=== PATIENT | female | born 1985 | race Caucasian/White ===

== ENCOUNTER 2016-11-15 11:51 | Inpatient (IN) | payer OTHER ==
[2016-11-15 13:08] VITALS: BMI 21.1
--- NOTE | 2016-11-15 14:30 | HP ---
COWS - Scale Resting Pulse: 0= [place] 80 or Below Sweatin=Flushed/Facial Moisture Restless Observation: 3= Extraneous Movement Pupil Size: 2= Moderately Dilated Bone or Joint Aches: 2= Severe Diffuse Aches Runny Nose/ Eye Tearin= Runny Nose/Eyes GI Upset > 30mins: 3= Vomiting/Diarrhea Tremor Observation: 2= Slight Tremor Visible Yawning Observation: 2= >3x During Session Anxiety or Irritability: 2=Irritable/Anxious Goose Flesh Skin: 0=Smooth Skin COWS Score: 20 Admission ROS S - HPI Chief Complaint: I NEED HELP TO STOP USING HEROIN Allergies/Adverse Reactions: Allergies Allergy/AdvReac Type Severity Reaction Status Date / Time No Known Allergies Allergy Verified 11/15/16 14:19 History of Present Illness: THIS 31 YEARS OLD FEMALE WITH HEROIN DEPENDENCE SEEKING DETOX,NEVER BEEN IN DETOX BEFORE ABSCESS OF RIGHT ELBOW TREATED WITH BACTRIM DS 1 TAB PO BID Exam Limitations: No Limitations - Ebola screening Have you traveled outside of the country in the last 21 days: No Have you had contact with anyone from an Ebola affected area: No Have you been sick,other than usual withdrawal symptoms: No - Review of Systems Constitutional: Chills, Diaphoresis, Loss of Appetite, Malaise, Night Sweats, Changes in sleep, Weakness EENT: reports: Tearing, Nose Congestion Respiratory: reports: No Symptoms reported Cardiac: reports: Palpitations GI: reports: Diarrhea, Nausea, Vomiting, Abdominal cramping : reports: No Symptoms Reported Musculoskeletal: reports: Back Pain, Joint Pain, Muscle Pain, Joint Stiffness Integumentary: reports: Dryness Neuro: reports: Headache, Tremors Endocrine: reports: No Symptoms Reported Hematology: reports: No Symptoms Reported Psychiatric: reports: Anxious, Depressed Patient History - Patient Medical History Hx Anemia: No Hx Asthma: No Hx Chronic Obstructive Pulmonary Disease (COPD): No Hx Cancer: No Hx Hypertension: No Hx Hypercholesterolemia: No Hx Pacemaker: No HX Cerebrovascular Accident: No Hx Seizures: No Hx Dementia: No Hx Diabetes: No Hx Gastrointestinal Disorders: No Hx Liver Disease: No Hx Genitourinary Disorders: No Hx Sexually Transmitted Disorders: No Hx Renal Disease (ESRD): No Hx Thyroid Disease: No Hx Human Immunodeficiency Virus (HIV): No (LAST 08/18) Hx Hepatitis C: No Hx Depression: Yes (ANXIETY) Hx Suicide Attempt: No Hx Bipolar Disorder: No Hx Schizophrenia: No Other Medical History: NO SUICIDAL,NO HOMICIDAL,ABSCESS OF RIEGHT ELBOW ON BACTRIM DS - Patient Surgical History Past Surgical History: No - PPD History Previous Implant?: Yes Documented Results: Negative w/o proof Implanted On Prior R Admission?: No PPD to be Administered?: Yes - Reproductive History Patient is a Female of Child Bearing Age (11 -55 yrs old): Yes Patient : No - Smoking Cessation Smoking history: Current every day smoker Aproximately how many cigarettes per day: 20 Hx Chewing Tobacco Use: No Initiated information on smoking cessation: Yes 'Breaking Loose' booklet given: 11/15/16 - Substance & Tx. History Hx Alcohol Use: No Hx Substance Use: Yes Substance Use Type: Heroin Hx Substance Use Treatment: No - Substances Abused Heroin Route: Injection Frequency: Daily Amount used: 20-30 bags Age of first use: 27 Date of Last Use: 11/15/16 Family Disease History - Family Disease History Family History: Denies Family Disease History: Other: Father (ALCOHOL) Admission Physical Exam [facility] - Vital Signs Vital Signs: Vital Signs - 24 hr 11/15/16 13:05 Temperature 98 F Pulse Rate 75 Respiratory 19 Rate Blood Pressure 121/65 - Physical General Appearance: Yes: Moderate Distress, Intoxicated, Tremorous, Irritable, Anxious HEENTM: Yes: Hearing grossly Normal, Normal ENT Inspection, Pharynx Normal Respiratory: Yes: Lungs Clear, Normal Breath Sounds, No Respiratory Distress Neck: Yes: Within Normal Limits, Supple, Trachea in good position Breast: Yes: Breast Exam Deferred Cardiology: Yes: Within Normal Limits, Regular Rhythm, S1, S2 Abdominal: Yes: Within Normal Limits, Normal Bowel Sounds, Non Tender, Flat, Soft Genitourinary: Yes: Within Normal Limits Back: Yes: Within Normal Limits, Muscle Spasm Musculoskeletal: Yes: full range of Motion, Back pain, Muscle Pain Extremities: Yes: Normal Inspection, Normal Range of Motion, Tremors Neurological: Yes: processing technician II-XII NML intact, Fully Oriented, Alert, Motor Strength 5/5 Integumentary: Yes: Dry, Track Das (ABSCESS OF RIGHT ELBOW) - Diagnostic (1) Opioid dependence with withdrawal Current Visit: Yes Status: Acute (2) Abscess Current Visit: Yes Status: Acute (3) Anxiety and depression Current Visit: Yes Status: Acute (4) Nicotine dependence Current Visit: Yes Status: Acute (5) Scoliosis Current Visit: Yes Status: Chronic Cleared for Admission [facility] - Detox or Rehab [facility] Level of Care: Medically Managed Detox Regimen/Protocol: Methadone [facility] Breath Alcohol Content Breath Alcohol Content: 0 Urine Pregancy Test - Result Urine Test Results: Negative- NO Line Present Urine Drug Screen - Results Drug Screen Negative: No Urine Drug Screen Results: OPI-Opiates
[2016-11-15] MEDS ORDERED: guaiFENesin/D-METHORPHAN HB 10 ML UNIT-DOSE CUPS PO PRN (14:43)
[2016-11-15] MEDS ORDERED: P-EPHED 60MG/TRIPROLIDI 2.5MG TABLET PO PRN (14:43)
[2016-11-15] MEDS ORDERED: MENTHOL/PHENOL 1 EACH UD MM PRN (14:43)
[2016-11-15] MEDS ORDERED: IBUPROFEN 400 MG TABLET (FP) PO PRN (14:43)
[2016-11-15] MEDS ORDERED: MAGNESIUM CITRATE 300 ML BOTTLE PO PRN (14:43)
[2016-11-15] MEDS ORDERED: MAG HYDROX/AL HYDROX/SIMETH 30 ML UNIT-DOSE CUP PO PRN (14:43)
[2016-11-15] MEDS ORDERED: LOPERAMIDE HCL 2 MG CAPSULE PO PRN (14:43)
[2016-11-15] MEDS ORDERED: ACETAMINOPHEN 325 MG TABLET (FP) PO PRN (14:43)
[2016-11-15] MEDS ORDERED: MAGNESIUM HYDROX 2400MG/30ML ORAL SUSPENSION 30 ML CUP PO PRN (14:43)
[2016-11-15] MEDS ORDERED: METHADONE HCL 10 MG TABLET (FOR DETOX USE ONLY) PO ONE ×2 (14:53→23:00)
[2016-11-15] MEDS: diazePAM 5 MG TABLET PO PRN ×2 (16:57→22:27)
[2016-11-15] MEDS: NICOTINE 21 MG/24 HOURS TOPICAL PATCH TD SCH (17:05)
[2016-11-15 17:52] LABS: URINE APPEARANCE CLEAR; URINE BILIRUBIN NEGATIVE (NEGATIVE); URINE BLOOD NEGATIVE (NEGATIVE); URINE COLOR DKYELLOW; URINE GLUCOSE (UA) NEGATIVE (NEGATIVE); URINE KETONE TRACE (NEGATIVE); URINE NITRITE NEGATIVE (NEGATIVE); URINE UROBILINOGEN 2.0 E.U/dl E.U./dl (0.2-1.0)
--- NOTE | 2016-11-15 17:55 | CONSULT ---
[facility] Psychiatric Consult - Data Date of interview: 11/15/16 Admission source: [facility] Identifying data: First admission to [facility] for this 31 y/o female from [place] ancestry seeking detox treatment on for heroin dependence.Patient is single without children,domiciled (lives with parents), currently employed and attending classes at [email or web address] (part-time student). Substance Abuse History: - Smoking Cessation. Smoking history: Current every day smoker. Aproximately how many cigarettes per day: 20. Hx Chewing Tobacco Use: No. Initiated information on smoking cessation: Yes. 'Breaking Loose' booklet given: 11/15/16. - Substance & Tx. History. Hx Alcohol Use: No. Hx Substance Use: Yes. Substance Use Type: Heroin. Hx Substance Use Treatment: No. Confirmed by patient. Medical History: Patient endorses good general health with the exception of an abcess (right elbow).Currently treated with antibiotics. Psychiatric History: Patient denies. Physical/Sexual Abuse/Trauma History: Patient denies. Additional Comment: Urine Drug Screen Results: OPI-Opiates.Noted. Mental Status Exam - Mental Status Exam Alert and Oriented to: Time, Place, Person Cognitive Function: Good Patient Appearance: Well Groomed Mood: Hopeful, Euthymic Affect: Appropriate, Normal Range Patient Behavior: Fatigued, Appropriate, Cooperative Speech Pattern: Clear, Appropriate Voice Loudness: Normal Thought Process: Goal Oriented Thought Disorder: Not Present Hallucinations: Denies Suicidal Ideation: Denies Homicidal Ideation: Denies Insight/Judgement: Poor Sleep: Fair Appetite: Good Muscle strength/Tone: Normal Gait/Station: Normal Psychiatric Findings - Problem List ([place] 1, 2,3) (1) Opioid dependence with withdrawal Current Visit: Yes Status: Acute (2) Substance induced mood disorder Current Visit: Yes Status: Acute (3) Nicotine dependence Current Visit: Yes Status: Acute (4) Abscess Current Visit: Yes Status: Acute (5) Scoliosis Current Visit: Yes Status: Chronic - Initial Treatment Plan Initial Treatment Plan: Psychoeducation.Detoxification.Observation.Patient is made aware of availability of diphenhydramine 50 mg po hs prn if insomnia.She is in agreement with this careplan.Observation.
[2016-11-15 17:57] LABS: URINE LEUK ESTERASE TRACE (NEGATIVE); URINE PROTEIN 1+ (NEGATIVE)
[2016-11-15 17:59] LABS: URINE MUCUS FEW; URINE RBC 12 /hpf (0-3); URINE WBC 2 /hpf (3-5)
[2016-11-15] MEDS: THIAMINE HCL 100 MG TABLET (FP) PO SCH (22:26)
[2016-11-15] MEDS: cloNIDine HCL 0.1 MG TABLET PO SCH (22:27)
[2016-11-15] MEDS: CYCLOBENZAPRINE HCL 10 MG TABLET (FP) PO PRN (22:27)
[2016-11-15] MEDS: SULFAMETHOXAZOLE/TRIMETHOPRIM 800MG/160MG D.S. TABLET PO SCH (22:27)
[2016-11-16] MEDS ORDERED: METHADONE HCL 10 MG TABLET (FOR DETOX USE ONLY) PO ONE (10:00)
[2016-11-16 10:16] LABS: ALBUMIN 3.3 g/dl (3.4-5.0); ALK PHOS 64 U/L (45-117); ANION GAP 8 (8-16); BILIRUBIN,TOTAL 0.1 mg/dL (0.2-1.0); CALCIUM 8.8 mg/dL (8.5-10.1); CO2 26 mmol/L (21-32); COCKROFT - GAULT 112.5655; CREATININE 0.7 mg/dL (0.55-1.02); GLUCOSE,RANDOM 105 mg/dL (74-106); SGOT/AST 13 U/L (15-37); SGPT/ALT 13 U/L (12-78); TOT PROT 6.5 g/dl (6.4-8.2)
[2016-11-16 10:28] LABS: MCH 28.7 pg (25.7-33.7); MCHC 32.9 g/dl (32.0-36.0); MEAN CELL VOLUME 87.1 fl (80-96); MEAN PLT VOLUME 7.9 fl (7.5-11.1); PLATELET COUNT 214 K/MM3 (134-434); RDW 13.4 % (11.6-15.6); WHITE BLOOD COUNT 5.2 K/mm3 (4.0-10.0)
[2016-11-16] MEDS: PRENATAL VITAMINS W/ FOLIC ACID TABLET (FP) PO SCH (10:45)
[2016-11-16] MEDS: cloNIDine HCL 0.1 MG TABLET PO SCH ×2 (10:45→22:14)
[2016-11-16] MEDS: SULFAMETHOXAZOLE/TRIMETHOPRIM 800MG/160MG D.S. TABLET PO SCH ×2 (10:45→22:14)
[2016-11-16] MEDS: NICOTINE 21 MG/24 HOURS TOPICAL PATCH TD SCH (10:46)
--- NOTE | 2016-11-16 10:52 | PN ---
S COWS - Scale Resting Pulse: 0= [place] 80 or Below Sweatin=Flushed/Facial Moisture Restless Observation: 1= Difficult to Sit Still Pupil Size: 0= Normal to Room Light Bone or Joint Aches: 2= Severe Diffuse Aches Runny Nose/ Eye Tearin= Runny Nose/Eyes GI Upset > 30mins: 2= Nausea/Diarrhea Tremor Observation of Outstretched Hands: 2= Slight Tremor Visible Yawning Observation: 2= >3x During Session Anxiety or Irritability: 2=Irritable/Anxious Goose Flesh Skin: 3=Piloerection COWS Score: 18 S Progress Note (SOAP) Subjective: body aches sweats anxiety nasal congestion irritable interrupted sleep Objective: 11/16/16 10:50 Vital Signs Temperature 97.5 F L 11/16/16 09:39 Pulse Rate 71 11/16/16 09:39 Respiratory Rate 16 11/16/16 09:39 Blood Pressure 98/53 11/16/16 09:39 O2 Sat by Pulse Oximetry (%) Laboratory Tests 11/15/16 11/16/16 15:30 07:00 Sodium 142 Potassium 4.4 Chloride 108 H Carbon Dioxide 26 Anion Gap 8 BUN 12 Creatinine 0.7 Creat Clearance w eGFR > 60 Random Glucose 105 Calcium 8.8 Total Bilirubin 0.1 L AST 13 L ALT 13 Alkaline Phosphatase 64 Total Protein 6.5 Albumin 3.3 L Urine Color Dkyellow Urine Appearance Clear Urine pH 5.0 Ur Specific [place] >= 1.030 H Urine Protein 1+ H Urine Glucose (UA) Negative Urine Ketones Trace H Urine Blood Negative Urine Nitrite Negative Urine Bilirubin Negative Urine Urobilinogen 2.0 e.u/dl H Ur Leukocyte Esterase Trace H Urine RBC 12 Urine WBC 2 Ur Epithelial Cells Rare Urine Mucus Few awake/alert ambulating no acute distress Assessment: 11/16/16 10:50 withdrawal sx Plan: continue detox increase fluids
--- NOTE | 2016-11-16 11:37 | EKG ---
Test Reason : Blood Pressure : / mmHG Vent. Rate : 072 BPM Atrial Rate : 072 BPM P-R Int : 124 ms QRS Dur : 096 ms QT Int : 380 ms P-R-T Axes : 062 070 050 degrees QTc Int : 416 ms NORMAL SINUS RHYTHM WITH SINUS ARRHYTHMIA NORMAL ECG NO PREVIOUS ECGS AVAILABLE Confirmed by CAREY MEDEIROS, TATUM ([id number]) on 11/16/2016 11:37:32 AM Referred By: Confirmed By:TATUM PATINO MD
[2016-11-16] MEDS: NICOTINE POLACRILEX 2 MG GUM BUC PRN (19:54)
[2016-11-16] MEDS: CYCLOBENZAPRINE HCL 10 MG TABLET (FP) PO PRN (19:54)
[2016-11-16] MEDS: diazePAM 5 MG TABLET PO PRN (19:54)
[2016-11-16] MEDS: THIAMINE HCL 100 MG TABLET (FP) PO SCH (22:15)
[2016-11-16] MEDS: hydrOXYzine PAMOATE 25 MG CAPSULE (FP) PO PRN (22:15)
[2016-11-17] MEDS ORDERED: METHADONE HCL 5 MG TABLET (FOR DETOX USE ONLY) PO ONE (10:00)
[2016-11-17] MEDS: NICOTINE 21 MG/24 HOURS TOPICAL PATCH TD SCH (10:41)
[2016-11-17] MEDS: cloNIDine HCL 0.1 MG TABLET PO SCH ×2 (10:41→22:22)
[2016-11-17] MEDS: SULFAMETHOXAZOLE/TRIMETHOPRIM 800MG/160MG D.S. TABLET PO SCH ×2 (10:41→22:21)
[2016-11-17] MEDS: PRENATAL VITAMINS W/ FOLIC ACID TABLET (FP) PO SCH (10:41)
[2016-11-17] MEDS: hydrOXYzine PAMOATE 25 MG CAPSULE (FP) PO PRN (11:01)
--- NOTE | 2016-11-17 11:24 | PN ---
BHS COWS - Scale Resting Pulse: 0= [place] 80 or Below Sweatin=Flushed/Facial Moisture Restless Observation: 1= Difficult to Sit Still Pupil Size: 0= Normal to Room Light Bone or Joint Aches: 2= Severe Diffuse Aches Runny Nose/ Eye Tearin= Runny Nose/Eyes GI Upset > 30mins: 0= None Tremor Observation of Outstretched Hands: 2= Slight Tremor Visible Yawning Observation: 1= 1-2x During Session Anxiety or Irritability: 2=Irritable/Anxious Goose Flesh Skin: 0=Smooth Skin COWS Score: 12 BHS Progress Note (SOAP) Subjective: tired sweats irritable agitation anxiety interrupted sleep poor appetite Objective: 11/17/16 11:22 Vital Signs Temperature 98.4 F 11/17/16 10:36 Pulse Rate 72 11/17/16 10:36 Respiratory Rate 18 11/17/16 10:36 Blood Pressure 111/73 11/17/16 10:36 O2 Sat by Pulse Oximetry (%) Laboratory Tests 11/15/16 11/16/16 11/16/16 15:30 07:00 07:00 WBC 5.2 RBC 3.91 Hgb 11.2 Hct 34.1 MCV 87.1 MCHC 32.9 RDW 13.4 Plt Count 214 MPV 7.9 Sodium 142 Potassium 4.4 Chloride 108 H Carbon Dioxide 26 Anion Gap 8 BUN 12 Creatinine 0.7 Creat Clearance w eGFR > 60 Random Glucose 105 Calcium 8.8 Total Bilirubin 0.1 L AST 13 L ALT 13 Alkaline Phosphatase 64 Total Protein 6.5 Albumin 3.3 L Urine Color Dkyellow Urine Appearance Clear Urine pH 5.0 Ur Specific [place] >= 1.030 H Urine Protein 1+ H Urine Glucose (UA) Negative Urine Ketones Trace H Urine Blood Negative Urine Nitrite Negative Urine Bilirubin Negative Urine Urobilinogen 2.0 e.u/dl H Ur Leukocyte Esterase Trace H Urine RBC 12 Urine WBC 2 Ur Epithelial Cells Rare Urine Mucus Few RPR Titer 11/16/16 07:00 WBC RBC Hgb Hct MCV MCHC RDW Plt Count MPV Sodium Potassium Chloride Carbon Dioxide Anion Gap BUN Creatinine Creat Clearance w eGFR Random Glucose Calcium Total Bilirubin AST ALT Alkaline Phosphatase Total Protein Albumin Urine Color Urine Appearance Urine pH Ur Specific [place] Urine Protein Urine Glucose (UA) Urine Ketones Urine Blood Urine Nitrite Urine Bilirubin Urine Urobilinogen Ur Leukocyte Esterase Urine RBC Urine WBC Ur Epithelial Cells Urine Mucus RPR Titer Nonreactive awake/alert ambulating no acute distress Assessment: 11/17/16 11:23 withdrawal sx Plan: continue detox increase fluids ensure plus bid
[2016-11-17] MEDS: diazePAM 5 MG TABLET PO PRN ×2 (17:50→22:20)
[2016-11-17] MEDS: CYCLOBENZAPRINE HCL 10 MG TABLET (FP) PO PRN (22:20)
[2016-11-17] MEDS: THIAMINE HCL 100 MG TABLET (FP) PO SCH (22:20)
[2016-11-18] MEDS: diphenhydrAMINE HCL 50 MG CAPSULE PO PRN (00:47)
[2016-11-18] MEDS ORDERED: METHADONE HCL 5 MG TABLET (FOR DETOX USE ONLY) PO ONE (10:00)
[2016-11-18] MEDS: SULFAMETHOXAZOLE/TRIMETHOPRIM 800MG/160MG D.S. TABLET PO SCH ×2 (10:22→22:29)
[2016-11-18] MEDS: PRENATAL VITAMINS W/ FOLIC ACID TABLET (FP) PO SCH (10:22)
[2016-11-18] MEDS: cloNIDine HCL 0.1 MG TABLET PO SCH ×2 (10:22→22:29)
[2016-11-18] MEDS: NICOTINE 21 MG/24 HOURS TOPICAL PATCH TD SCH (10:23)
[2016-11-18] MEDS: diazePAM 5 MG TABLET PO PRN (10:25)
[2016-11-18] MEDS: CYCLOBENZAPRINE HCL 10 MG TABLET (FP) PO PRN ×2 (10:25→22:29)
--- NOTE | 2016-11-18 14:29 | PN ---
BHS Progress Note (SOAP) Subjective: ALERT,IRRITABLE,ANXIOUS,PAIN IN THE BODY AND BACK Objective: 11/18/16 14:29 Vital Signs Temperature 97.9 F 11/18/16 10:00 Pulse Rate 70 11/18/16 10:00 Respiratory Rate 16 11/18/16 10:00 Blood Pressure 101/65 11/18/16 10:00 O2 Sat by Pulse Oximetry (%) Assessment: 11/18/16 14:29 WITHDRAWAL SYMPTOM Plan: CONTINUE DETOX
[2016-11-18] MEDS: THIAMINE HCL 100 MG TABLET (FP) PO SCH (22:29)
[2016-11-18] MEDS: hydrOXYzine PAMOATE 25 MG CAPSULE (FP) PO PRN (22:29)
[2016-11-19] MEDS ORDERED: METHADONE HCL 10 MG TABLET (FOR DETOX USE ONLY) PO ONE (10:00)
[2016-11-19] MEDS: SULFAMETHOXAZOLE/TRIMETHOPRIM 800MG/160MG D.S. TABLET PO SCH ×2 (10:31→22:21)
[2016-11-19] MEDS: PRENATAL VITAMINS W/ FOLIC ACID TABLET (FP) PO SCH (10:31)
[2016-11-19] MEDS: cloNIDine HCL 0.1 MG TABLET PO SCH ×2 (10:31→22:21)
[2016-11-19] MEDS: NICOTINE 21 MG/24 HOURS TOPICAL PATCH TD SCH (10:32)
--- NOTE | 2016-11-19 12:40 | PN ---
S Progress Note (SOAP) Subjective: ALERT,IRRITABLE,ANXIOUS,INTERRUPTED SLEEP,TREMOR Objective: 11/19/16 12:39 Vital Signs Temperature 98.1 F 11/19/16 09:53 Pulse Rate 75 11/19/16 09:53 Respiratory Rate 16 11/19/16 09:53 Blood Pressure 101/60 11/19/16 09:53 O2 Sat by Pulse Oximetry (%) Assessment: 11/19/16 12:40 WITHDRAWAL SYMPTOM Plan: CONTINUE DETOX,DISCHARGE IN AM
[2016-11-19] MEDS: NICOTINE POLACRILEX 2 MG GUM BUC PRN ×2 (19:13→22:21)
[2016-11-19] MEDS: hydrOXYzine PAMOATE 25 MG CAPSULE (FP) PO PRN (19:13)
[2016-11-19] MEDS: diphenhydrAMINE HCL 50 MG CAPSULE PO PRN (22:21)
[2016-11-19] MEDS: THIAMINE HCL 100 MG TABLET (FP) PO SCH (22:21)
[2016-11-19] MEDS: CYCLOBENZAPRINE HCL 10 MG TABLET (FP) PO PRN (22:21)
[2016-11-20] MEDS: hydrOXYzine PAMOATE 25 MG CAPSULE (FP) PO PRN (05:37)
[2016-11-20] MEDS ORDERED: METHADONE HCL 5 MG TABLET (FOR DETOX USE ONLY) PO ONE (06:00)
--- NOTE | 2016-11-20 09:00 | DS ---
[facility] Detox Discharge Summary Admission Date: 11/15/16 Discharge Date: 11/20/16 - History Present History: Opioid Dependence - Physical Exam Results Vital Signs: Vital Signs Temperature 97.5 F L 11/20/16 06:00 Pulse Rate 70 11/20/16 06:00 Respiratory Rate 16 11/20/16 06:00 Blood Pressure 101/55 11/20/16 06:00 O2 Sat by Pulse Oximetry (%) - Treatment Hospital Course: Detox Protocol Followed, Detoxed Safely, Responded well, Discharged Condition Good, Rehab Referral Accepted - Medication Discharge Medications: Ambulatory Orders Sulfamethoxazole/Trimethoprim [Bactrim Ds -] 1 tab PO BID 11/15/16 - Diagnosis (1) Abscess Current Visit: Yes Status: Acute (2) Anxiety and depression Current Visit: Yes Status: Chronic (3) Nicotine dependence Current Visit: Yes Status: Chronic Qualifiers: Nicotine product type: cigarettes Substance use status: uncomplicated Qualified Code(s): F17.210 - Nicotine dependence, cigarettes, uncomplicated (4) Opioid dependence with withdrawal Current Visit: Yes Status: Chronic (5) Substance induced mood disorder Current Visit: Yes Status: Acute (6) Scoliosis Current Visit: Yes Status: Chronic Qualifiers: Scoliosis type: unspecified scoliosis Spinal region: unspecified Qualified Code(s): M41.9 - Scoliosis, unspecified - AMA Did Patient Leave Against Medical Advice: No
[2016-11-20 10:01] VITALS: BP 109/61; PULSE 73; TEMP 97.7
== END 2016-11-20 09:24 | disposition home or self-care (01) | DRG 773 ==
LOC: YASAS 11:51 → Y6N 14:41
PROVIDERS: ADMIT Internal Medicine Addiction Medicine; ATTEND Internal Medicine Addiction Medicine
PROC: HZ2ZZZZ Detoxification Services for Substance Abuse Treatment (ICD-10-PCS; principal; 2016-11-15)
DX: F11.23 Opioid dependence with withdrawal (principal); F17.210 Nicotine dependence, cigarettes, uncomplicated; F19.24 Other psychoactive substance dependence with psychoactive substance-induced mood disorder; F41.8 Other specified anxiety disorders; M41.9 Scoliosis, unspecified; L02.413 Cutaneous abscess of right upper limb
CPT/HCPCS: 36415; 80053; 81003; 81015; 85027; 86593; 93005; 93010

== ENCOUNTER 2017-05-25 11:11 | Inpatient (IN) | payer OTHER ==
[2017-05-25 12:13] VITALS: BMI 19.8
--- NOTE | 2017-05-25 14:41 | HP ---
COWS - Scale Resting Pulse: 1= [place] 81-100 Sweatin=Flushed/Facial Moisture Restless Observation: 3= Extraneous Movement Pupil Size: 2= Moderately Dilated Bone or Joint Aches: 2= Severe Diffuse Aches Runny Nose/ Eye Tearin= Runny Nose/Eyes GI Upset > 30mins: 3= Vomiting/Diarrhea Tremor Observation: 2= Slight Tremor Visible Yawning Observation: 2= >3x During Session Anxiety or Irritability: 2=Irritable/Anxious Goose Flesh Skin: 0=Smooth Skin COWS Score: 21 Admission ROS S - HPI Chief Complaint: I NEED HELP TO STOP USING HEROIN Allergies/Adverse Reactions: Allergies Allergy/AdvReac Type Severity Reaction Status Date / Time No Known Allergies Allergy Verified 05/25/17 14:33 History of Present Illness: THIS 31 YEARS OLD FEMALE WITH HEROIN DEPENDENCE,SEEKING DETOX,LAST TREATMENT TO -11/20/16 NICOTINE DEPENDENCE ANXIETY,DEPRESSION,INSOMNIA NICOTINE DEPENDENCE NO SIGNIFICANT PERIOD OF SOBRIETY Exam Limitations: No Limitations - Ebola screening Have you traveled outside of the country in the last 21 days: No (N) Have you had contact with anyone from an Ebola affected area: No Have you been sick,other than usual withdrawal symptoms: No Do you have a fever: No - Review of Systems Constitutional: Chills, Diaphoresis, Loss of Appetite, Malaise, Night Sweats, Changes in sleep, Weakness EENT: reports: Tearing, Nose Congestion Respiratory: reports: No Symptoms reported Cardiac: reports: Palpitations GI: reports: Diarrhea, Nausea, Vomiting, Abdominal cramping : reports: No Symptoms Reported Musculoskeletal: reports: Back Pain, Joint Pain, Muscle Pain, Joint Stiffness Integumentary: reports: Dryness Neuro: reports: Headache, Tremors Endocrine: reports: No Symptoms Reported Hematology: reports: No Symptoms Reported Psychiatric: reports: No Sypmtoms Reported, Judgement Intact, Mood/Affect Appropiate, Orientated x3 (INSOMNIA), Anxious, Depressed Patient History - Patient Medical History Hx Anemia: No Hx Asthma: No Hx Chronic Obstructive Pulmonary Disease (COPD): No Hx Cancer: No Hx Cardiac Disorders: No Hx Hypertension: No Hx Hypercholesterolemia: No Hx Pacemaker: No HX Cerebrovascular Accident: No Hx Seizures: No Hx Dementia: No Hx Diabetes: No Hx Gastrointestinal Disorders: No Hx Liver Disease: No Hx Genitourinary Disorders: No Hx Sexually Transmitted Disorders: No Hx Renal Disease (ESRD): No Hx Thyroid Disease: No Hx Human Immunodeficiency Virus (HIV): No (LAST 08/18 LAST 11/15 NEGATIVE) Hx Hepatitis C: No Hx Depression: Yes (ANXIETY) Hx Suicide Attempt: No Hx Bipolar Disorder: No Hx Schizophrenia: No Other Medical History: INSOMNIA,NO SUICIDAL,NO HOMICIDAL - Patient Surgical History Past Surgical History: No - PPD History Previous Implant?: Yes Documented Results: Negative w/proof Implanted On Prior [facility] Admission?: Yes Date: 11/17/16 Results: 0 MM PPD to be Administered?: No - Reproductive History Patient is a Female of Child Bearing Age (11 -55 yrs old): Yes Patient : No - Smoking Cessation Smoking history: Current every day smoker Aproximately how many cigarettes per day: 20 Hx Chewing Tobacco Use: No Initiated information on smoking cessation: Yes 'Breaking Loose' booklet given: 05/25/17 - Substance & Tx. History Hx Alcohol Use: No Hx Substance Use: Yes Substance Use Type: Heroin Hx Substance Use Treatment: Yes ([facility] 11/15/16 TO 11/20/16) - Substances Abused Heroin Route: Injection Frequency: Daily Amount used: 25-30 bags Age of first use: 27 Date of Last Use: 05/24/17 Family Disease History - Family Disease History Family Disease History: Other: Father (ALCOHOL) Admission Physical Exam S - Vital Signs Vital Signs: Vital Signs - 24 hr 05/25/17 12:09 Temperature 98.1 F Pulse Rate 100 H Respiratory 18 Rate Blood Pressure 140/93 - Physical General Appearance: Yes: Moderate Distress, Tremorous, Irritable, Sweating HEENTM: Yes: Normocephalic, CARLO, Pharynx Normal Respiratory: Yes: Within Normal Limits, Lungs Clear, Normal Breath Sounds, No Respiratory Distress Neck: Yes: Within Normal Limits Breast: Yes: Breast Exam Deferred Cardiology: Yes: Within Normal Limits, Regular Rhythm, Regular Rate, S1, S2 Abdominal: Yes: Within Normal Limits, Normal Bowel Sounds, Non Tender, Flat, Soft Genitourinary: Yes: Within Normal Limits Back: Yes: Muscle Spasm Musculoskeletal: Yes: full range of Motion, Back pain, Joint Stiffness, Muscle Pain Extremities: Yes: Within Normal Limits, Normal Range of Motion, Tremors Neurological: Yes: tilesetter II-XII NML intact, Fully Oriented, Alert, Motor Strength 5/5 Integumentary: Yes: Dry - Diagnostic (1) Opioid dependence with withdrawal Current Visit: No Status: Chronic (2) Anxiety and depression Current Visit: No Status: Chronic (3) Nicotine dependence Current Visit: No Status: Chronic Qualifiers: Nicotine product type: cigarettes Substance use status: uncomplicated Qualified Code(s): F17.210 - Nicotine dependence, cigarettes, uncomplicated (4) Scoliosis Current Visit: No Status: Chronic Qualifiers: Scoliosis type: unspecified scoliosis Spinal region: unspecified Qualified Code(s): M41.9 - Scoliosis, unspecified (5) Insomnia Current Visit: Yes Status: Acute Cleared for Admission [facility] - Detox or Rehab [facility] Level of Care: Medically Managed Detox Regimen/Protocol: Methadone [facility] Breath Alcohol Content Breath Alcohol Content: 0 Urine Pregancy Test - Result Urine Test Results: Negative- NO Line Present Urine Drug Screen - Results Drug Screen Negative: No Urine Drug Screen Results: OPI-Opiates, MTD-Methadone, TCA-Tricyclic Antidepress
[2017-05-25] MEDS ORDERED: MENTHOL/PHENOL 1 EACH UD MM PRN (14:47)
[2017-05-25] MEDS ORDERED: guaiFENesin/D-METHORPHAN HB 10 ML UNIT-DOSE CUPS PO PRN (14:47)
[2017-05-25] MEDS ORDERED: MAGNESIUM HYDROX 2400MG/30ML ORAL SUSPENSION 30 ML CUP PO PRN (14:47)
[2017-05-25] MEDS ORDERED: MAGNESIUM CITRATE 300 ML BOTTLE PO PRN (14:47)
[2017-05-25] MEDS ORDERED: LOPERAMIDE HCL 2 MG CAPSULE PO PRN (14:47)
[2017-05-25] MEDS ORDERED: P-EPHED 60MG/TRIPROLIDI 2.5MG TABLET PO PRN (14:47)
[2017-05-25] MEDS ORDERED: MAG HYDROX/AL HYDROX/SIMETH 30 ML UNIT-DOSE CUP PO PRN (14:47)
[2017-05-25] MEDS ORDERED: ACETAMINOPHEN 325 MG TABLET (FP) PO PRN (14:47)
[2017-05-25] MEDS ORDERED: METHADONE HCL 10 MG TABLET (FOR DETOX USE ONLY) PO ONE ×2 (15:30→23:00)
[2017-05-25] MEDS ORDERED: cloNIDine HCL 0.1 MG TABLET PO ONE (15:30)
[2017-05-25] MEDS: diazePAM 5 MG TABLET PO PRN ×2 (17:23→22:11)
[2017-05-25] MEDS: NICOTINE 21 MG/24 HOURS TOPICAL PATCH TD SCH (17:26)
[2017-05-25] MEDS: NICOTINE POLACRILEX 2 MG GUM BC PRN (17:27)
[2017-05-25] MEDS: CYCLOBENZAPRINE HCL 10 MG TABLET (FP) PO PRN (22:11)
[2017-05-25] MEDS: THIAMINE HCL 100 MG TABLET (FP) PO SCH (22:11)
[2017-05-25] MEDS: hydrOXYzine PAMOATE 50 MG CAPSULE (FP) PO PRN (22:11)
[2017-05-26 02:04] LABS: URINE APPEARANCE SLCLOUDY; URINE BILIRUBIN NEGATIVE (NEGATIVE); URINE BLOOD NEGATIVE (NEGATIVE); URINE COLOR AMBER; URINE GLUCOSE (UA) NEGATIVE (NEGATIVE); URINE KETONE NEGATIVE (NEGATIVE); URINE NITRITE NEGATIVE (NEGATIVE); URINE PROTEIN NEGATIVE (NEGATIVE)
[2017-05-26 09:55] LABS: MCH 28.6 pg (25.7-33.7); MCHC 32.8 g/dl (32.0-36.0); MEAN CELL VOLUME 87.2 fl (80-96); MEAN PLT VOLUME 8.2 fl (7.5-11.1); PLATELET COUNT 292 K/MM3 (134-434); WHITE BLOOD COUNT 6.3 K/mm3 (4.0-10.0)
[2017-05-26] MEDS ORDERED: METHADONE HCL 10 MG TABLET (FOR DETOX USE ONLY) PO ONE (10:00)
[2017-05-26] MEDS: PRENATAL VITAMINS W/ FOLIC ACID TABLET (FP) PO SCH (10:23)
[2017-05-26] MEDS: diazePAM 5 MG TABLET PO PRN ×2 (10:24→22:13)
[2017-05-26] MEDS: NICOTINE 21 MG/24 HOURS TOPICAL PATCH TD SCH (10:24)
[2017-05-26 10:51] LABS: ALK PHOS 75 U/L (45-117); ANION GAP 6 (8-16); BILIRUBIN,TOTAL 0.4 mg/dL (0.2-1.0); CALCIUM 8.8 mg/dL (8.5-10.1); CO2 28 mmol/L (21-32); CREATININE 0.7 mg/dL (0.55-1.02); GLUCOSE,RANDOM 98 mg/dL (74-106); SGOT/AST 16 U/L (15-37); SGPT/ALT 21 U/L (12-78); TOT PROT 8.1 g/dl (6.4-8.2)
[2017-05-26 11:46] LABS: URINE LEUK ESTERASE Negative (NEGATIVE)
--- NOTE | 2017-05-26 14:19 | PN ---
BHS COWS - Scale Resting Pulse: 0= [place] 80 or Below Sweatin= Chills/Flushing Restless Observation: 3= Extraneous Movement Pupil Size: 1= Pupils >than Normal Bone or Joint Aches: 2= Severe Diffuse Aches Runny Nose/ Eye Tearin= Runny Nose/Eyes GI Upset > 30mins: 2= Nausea/Diarrhea Tremor Observation of Outstretched Hands: 2= Slight Tremor Visible Yawning Observation: 1= 1-2x During Session Anxiety or Irritability: 2=Irritable/Anxious Goose Flesh Skin: 0=Smooth Skin COWS Score: 16 S Progress Note (SOAP) Subjective: alert,irritable,tremor,pain in the body,joint,and back Objective: 05/26/17 14:17 Vital Signs Temperature 97.7 F 05/26/17 11:37 Pulse Rate 65 05/26/17 11:37 Respiratory Rate 16 05/26/17 11:37 Blood Pressure 112/69 05/26/17 11:37 O2 Sat by Pulse Oximetry (%) ekg nsr with sinus arrhythmia normal ecg Laboratory Last Values WBC 6.3 K/mm3 (4.0-10.0) 05/26/17 06:00 RBC 4.69 M/mm3 (3.60-5.2) 05/26/17 06:00 Hgb 13.4 GM/dL (10.7-15.3) D 05/26/17 06:00 Hct 40.8 % (32.4-45.2) D 05/26/17 06:00 MCV 87.2 fl (80-96) 05/26/17 06:00 MCH 28.6 pg (25.7-33.7) 05/26/17 06:00 MCHC 32.8 g/dl (32.0-36.0) 05/26/17 06:00 RDW 14.0 % (11.6-15.6) 05/26/17 06:00 Plt Count 292 K/MM3 (134-434) D 05/26/17 06:00 MPV 8.2 fl (7.5-11.1) 05/26/17 06:00 Manual Slide Review No Result Required. 05/26/17 06:00 Sodium 138 mmol/L (136-145) 05/26/17 06:00 Potassium 4.6 mmol/L (3.5-5.1) 05/26/17 06:00 Chloride 104 mmol/L (98-107) 05/26/17 06:00 Carbon Dioxide 28 mmol/L (21-32) 05/26/17 06:00 Anion Gap 6 (8-16) L 05/26/17 06:00 BUN 15 mg/dL (7-18) D 05/26/17 06:00 Creatinine 0.7 mg/dL (0.55-1.02) 05/26/17 06:00 Creat Clearance w eGFR > 60 (>60) 05/26/17 06:00 Random Glucose 98 mg/dL (74-106) 05/26/17 06:00 Calcium 8.8 mg/dL (8.5-10.1) 05/26/17 06:00 Total Bilirubin 0.4 mg/dL (0.2-1.0) D 05/26/17 06:00 AST 16 U/L (15-37) D 05/26/17 06:00 ALT 21 U/L (12-78) D 05/26/17 06:00 Alkaline Phosphatase 75 U/L (45-117) 05/26/17 06:00 Total Protein 8.1 g/dl (6.4-8.2) D 05/26/17 06:00 Albumin 4.0 g/dl (3.4-5.0) D 05/26/17 06:00 Urine Color Analisa 05/25/17 18:02 Urine Appearance Slcloudy 05/25/17 18:02 Urine pH 6.0 (5.0-8.0) 05/25/17 18:02 Ur Specific [place] 1.027 (1.001-1.035) 05/25/17 18:02 Urine Protein Negative (NEGATIVE) 05/25/17 18:02 Urine Glucose (UA) Negative (NEGATIVE) 05/25/17 18:02 Urine Ketones Negative (NEGATIVE) 05/25/17 18:02 Urine Blood Negative (NEGATIVE) 05/25/17 18:02 Urine Nitrite Negative (NEGATIVE) 05/25/17 18:02 Urine Bilirubin Negative (NEGATIVE) 05/25/17 18:02 Urine Urobilinogen 2.0 mg/dL (0.2-1.0) H 05/25/17 18:02 Ur Leukocyte Esterase Negative (NEGATIVE) 05/25/17 18:02 RPR Titer Nonreactive (NONREACTIVE) 05/26/17 06:00 Assessment: 05/26/17 14:19 withdrawal symptom Plan: continue detox
--- NOTE | 2017-05-26 14:55 | CONSULT ---
[facility] Psychiatric Consult - Data Date of interview: 05/26/17 Admission source: [facility] Identifying data: Readmission to [facility] for this 31 y/o female from [place] ancestry seeking detox treatment on for heroin dependence.Patient is single without children,domiciled,currently unemployed and supported on unemployment benefits. Substance Abuse History: Confirmed by patient in this interview.See [facility] report for details : Smoking history: Current every day smoker. Aproximately how many cigarettes per day: 20. Hx Chewing Tobacco Use: No. Initiated information on smoking cessation: Yes. 'Breaking Loose' booklet given: . - Substance & Tx. History. Hx Alcohol Use: No. Hx Substance Use: Yes. Substance Use Type: Heroin. Hx Substance Use Treatment: Yes ([facility] 11/15/16 TO 11/20/16). - Substances Abused. Heroin. Route: Injection. Frequency: Daily. Amount used: 25-30 bags. Age of first use: 27. Date of Last Use: 05/24 Medical History: No history of medical problems. Psychiatric History: Patient denies. Physical/Sexual Abuse/Trauma History: No reported history of abuse. Additional Comment: Urine Drug Screen Results: OPI-Opiates, MTD-Methadone, TCA- Tricyclic Antidepressant.Noted. Mental Status Exam - Mental Status Exam Alert and Oriented to: Time, Place, Person Cognitive Function: Good Patient Appearance: Well Groomed Mood: Withdrawn, Euthymic Affect: Normal Range Patient Behavior: Fatigued, Appropriate, Cooperative Speech Pattern: Clear Voice Loudness: Normal Thought Process: Intact, Goal Oriented Thought Disorder: Not Present Hallucinations: Denies Suicidal Ideation: Denies Homicidal Ideation: Denies Insight/Judgement: Poor Sleep: Poorly, Difficulty falling asleep Appetite: Good Gait/Station: Normal Psychiatric Findings - Problem List ([place] 1, 2,3) (1) Opioid dependence with withdrawal Current Visit: Yes Status: Acute (2) Nicotine dependence Current Visit: Yes Status: Acute Qualifiers: Nicotine product type: cigarettes Substance use status: uncomplicated Qualified Code(s): F17.210 - Nicotine dependence, cigarettes, uncomplicated (3) Insomnia Current Visit: Yes Status: Acute - Initial Treatment Plan Initial Treatment Plan: Psychoeducation.Sleep hygiene.Detoxification.Vistaril 50 mg po at bedtime (patient's request).Side effects/benefits discussed with patient.Agrees with careplan.Observation.
[2017-05-26] MEDS: hydrOXYzine PAMOATE 50 MG CAPSULE (FP) PO PRN ×2 (14:58→22:14)
[2017-05-26] MEDS: THIAMINE HCL 100 MG TABLET (FP) PO SCH (22:13)
[2017-05-26] MEDS: CYCLOBENZAPRINE HCL 10 MG TABLET (FP) PO PRN (22:13)
[2017-05-27] MEDS ORDERED: METHADONE HCL 5 MG TABLET (FOR DETOX USE ONLY) PO ONE (10:00)
[2017-05-27] MEDS: PRENATAL VITAMINS W/ FOLIC ACID TABLET (FP) PO SCH (10:28)
[2017-05-27] MEDS: CYCLOBENZAPRINE HCL 10 MG TABLET (FP) PO PRN (10:28)
[2017-05-27] MEDS: diazePAM 5 MG TABLET PO PRN ×3 (10:28→22:17)
[2017-05-27] MEDS: NICOTINE POLACRILEX 2 MG GUM BC PRN ×2 (10:29→19:10)
[2017-05-27] MEDS: NICOTINE 21 MG/24 HOURS TOPICAL PATCH TD SCH (10:29)
--- NOTE | 2017-05-27 10:48 | PN ---
[facility] COWS - Scale Resting Pulse: 1= [place] 81-100 Sweatin= Chills/Flushing Restless Observation: 3= Extraneous Movement Pupil Size: 1= Pupils >than Normal Bone or Joint Aches: 2= Severe Diffuse Aches Runny Nose/ Eye Tearin= Runny Nose/Eyes GI Upset > 30mins: 2= Nausea/Diarrhea Tremor Observation of Outstretched Hands: 2= Slight Tremor Visible Yawning Observation: 1= 1-2x During Session Anxiety or Irritability: 2=Irritable/Anxious Goose Flesh Skin: 0=Smooth Skin COWS Score: 17 [facility] Progress Note (SOAP) Subjective: alert,irritable,anxious,tremor,interrupted sleep,pain in the body and back Objective: 05/27/17 10:47 Vital Signs Temperature 98 F 05/27/17 09:45 Pulse Rate 86 05/27/17 09:45 Respiratory Rate 18 05/27/17 09:45 Blood Pressure 122/77 05/27/17 09:45 O2 Sat by Pulse Oximetry (%) Assessment: 05/27/17 10:47 withdrawal symptom Plan: continue detox
[2017-05-27] MEDS: hydrOXYzine PAMOATE 50 MG CAPSULE (FP) PO PRN ×2 (14:06→19:10)
[2017-05-27] MEDS: THIAMINE HCL 100 MG TABLET (FP) PO SCH (22:17)
[2017-05-28] MEDS: diazePAM 5 MG TABLET PO PRN ×3 (05:42→14:07)
[2017-05-28] MEDS: NICOTINE POLACRILEX 2 MG GUM BC PRN ×6 (05:43→22:25)
[2017-05-28] MEDS ORDERED: METHADONE HCL 5 MG TABLET (FOR DETOX USE ONLY) PO ONE (10:00)
[2017-05-28] MEDS: NICOTINE 21 MG/24 HOURS TOPICAL PATCH TD SCH (10:05)
[2017-05-28] MEDS: PRENATAL VITAMINS W/ FOLIC ACID TABLET (FP) PO SCH (10:05)
--- NOTE | 2017-05-28 11:33 | PN ---
[facility] Progress Note (SOAP) Subjective: irritable anxiety restless chills interrupted sleep Objective: 05/28/17 11:32 Vital Signs Temperature 97.2 F L 05/28/17 09:38 Pulse Rate 75 05/28/17 09:38 Respiratory Rate 18 05/28/17 09:38 Blood Pressure 113/64 05/28/17 09:38 O2 Sat by Pulse Oximetry (%) aaox3 ambulating no acute distress Assessment: 05/28/17 11:32 withdrawal sx Plan: continue detox increase fluids aveeno soap prn
[2017-05-28] MEDS ORDERED: COLLOIDAL OATMEAL 1 BAR EACH TP PRN (15:44)
--- NOTE | 2017-05-28 15:47 | PN ---
[facility] Progress Note Note: Pt sensitive to soap, aveeno prescribed
[2017-05-28] MEDS: hydrOXYzine PAMOATE 50 MG CAPSULE (FP) PO PRN ×2 (17:15→22:15)
[2017-05-28] MEDS: IBUPROFEN 400 MG TABLET (FP) PO PRN (19:07)
[2017-05-28] MEDS: CYCLOBENZAPRINE HCL 10 MG TABLET (FP) PO PRN (22:14)
[2017-05-28] MEDS: THIAMINE HCL 100 MG TABLET (FP) PO SCH (22:15)
--- NOTE | 2017-05-29 01:03 | EKG ---
Test Reason : Blood Pressure : / mmHG Vent. Rate : 066 BPM Atrial Rate : 066 BPM P-R Int : 144 ms QRS Dur : 090 ms QT Int : 426 ms P-R-T Axes : 055 069 034 degrees QTc Int : 446 ms NORMAL SINUS RHYTHM WITH SINUS ARRHYTHMIA NORMAL ECG WHEN COMPARED WITH ECG OF 25-MAY-2017 17:31, NO SIGNIFICANT CHANGE WAS FOUND Confirmed by AMOR ART MD ([id number]) on 05/29/2017 1:03:34 AM Referred By: Confirmed By:AMOR ART MD
--- NOTE | 2017-05-29 01:04 | EKG ---
Test Reason : Blood Pressure : / mmHG Vent. Rate : 066 BPM Atrial Rate : 066 BPM P-R Int : 124 ms QRS Dur : 088 ms QT Int : 410 ms P-R-T Axes : 062 076 039 degrees QTc Int : 429 ms NORMAL SINUS RHYTHM NONSPECIFIC ST ABNORMALITY ABNORMAL ECG WHEN COMPARED WITH ECG OF 15-NOV-2016 16:05, NO SIGNIFICANT CHANGE WAS FOUND Confirmed by AMOR ART MD ([id number]) on 05/29/2017 1:04:26 AM Referred By: Confirmed By:AMOR ART MD
[2017-05-29] MEDS ORDERED: METHADONE HCL 10 MG TABLET (FOR DETOX USE ONLY) PO ONE ×2 (10:00→11:18)
--- NOTE | 2017-05-29 10:34 | PN ---
[facility] Progress Note (SOAP) Subjective: feeling much better anxiety Objective: 05/29/17 10:33 Vital Signs Temperature 97.0 F L 05/29/17 06:00 Pulse Rate 70 05/29/17 06:00 Respiratory Rate 18 05/29/17 06:00 Blood Pressure 103/61 05/29/17 06:00 O2 Sat by Pulse Oximetry (%) aaox3 ambulating no acute distress Assessment: 05/29/17 10:34 mild withdrawal sx Plan: continue detox increase fluids d/c in am
[2017-05-29] MEDS: PRENATAL VITAMINS W/ FOLIC ACID TABLET (FP) PO SCH (10:42)
[2017-05-29] MEDS: hydrOXYzine PAMOATE 50 MG CAPSULE (FP) PO PRN ×3 (10:42→22:04)
[2017-05-29] MEDS: NICOTINE 21 MG/24 HOURS TOPICAL PATCH TD SCH (10:42)
[2017-05-29] MEDS: NICOTINE POLACRILEX 2 MG GUM BC PRN ×3 (10:43→22:05)
[2017-05-29] MEDS ORDERED: cloNIDine HCL 0.1 MG TABLET PO ONE (11:21)
[2017-05-29] MEDS: CYCLOBENZAPRINE HCL 10 MG TABLET (FP) PO PRN ×2 (14:05→22:04)
[2017-05-29] MEDS: THIAMINE HCL 100 MG TABLET (FP) PO SCH (22:04)
[2017-05-29] MEDS: IBUPROFEN 400 MG TABLET (FP) PO PRN (22:04)
[2017-05-30] MEDS: NICOTINE POLACRILEX 2 MG GUM BC PRN (05:28)
[2017-05-30] MEDS: hydrOXYzine PAMOATE 50 MG CAPSULE (FP) PO PRN (05:43)
[2017-05-30] MEDS ORDERED: METHADONE HCL 5 MG TABLET (FOR DETOX USE ONLY) PO ONE (06:00)
[2017-05-30] MEDS ORDERED: cloNIDine HCL 0.1 MG TABLET PO ONE (06:23)
[2017-05-30 06:35] VITALS: BP 111/70; PULSE 62; TEMP 97.2
--- NOTE | 2017-05-30 09:37 | DS ---
[facility] Detox Discharge Summary Admission Date: 05/25/17 Discharge Date: 05/30/17 - History Present History: Opioid Dependence - Physical Exam Results Vital Signs: Vital Signs Temperature 97.2 F L 05/30/17 06:00 Pulse Rate 62 05/30/17 06:00 Respiratory Rate 18 05/30/17 06:00 Blood Pressure 111/70 05/30/17 06:00 O2 Sat by Pulse Oximetry (%) - Treatment Hospital Course: Detox Protocol Followed, Detoxed Safely, Responded well, Discharged Condition Good, Rehab Referral Accepted - Medication Discharge Medications: Ambulatory Orders NK [No Known Home Medication] 05/25/17 - Diagnosis (1) Insomnia Status: Acute (2) Nicotine dependence Status: Chronic Qualifiers: Nicotine product type: cigarettes Substance use status: uncomplicated Qualified Code(s): F17.210 - Nicotine dependence, cigarettes, uncomplicated (3) Opioid dependence with withdrawal Status: Chronic (4) Weight loss Status: Acute (5) Abscess Status: Acute (6) Substance induced mood disorder Status: Acute (7) Anxiety and depression Status: Chronic (8) Scoliosis Status: Chronic Qualifiers: Scoliosis type: unspecified scoliosis Spinal region: unspecified Qualified Code(s): M41.9 - Scoliosis, unspecified - AMA Did Patient Leave Against Medical Advice: No
== END 2017-05-30 09:28 | disposition home or self-care (01) | DRG 773 ==
LOC: YASAS 11:11 → Y6N 14:56
PROVIDERS: ADMIT Internal Medicine; ATTEND Internal Medicine
PROC: HZ2ZZZZ Detoxification Services for Substance Abuse Treatment (ICD-10-PCS; principal; 2017-05-25)
DX: F11.23 Opioid dependence with withdrawal (principal); F17.210 Nicotine dependence, cigarettes, uncomplicated; F19.24 Other psychoactive substance dependence with psychoactive substance-induced mood disorder; F41.8 Other specified anxiety disorders; G47.00 Insomnia, unspecified; M41.9 Scoliosis, unspecified; I49.9 Cardiac arrhythmia, unspecified; Z87.898 Personal history of other specified conditions
CPT/HCPCS: 36415; 80053; 81003; 85027; 86593; 93005; 93010

== ENCOUNTER 2017-10-29 15:00 | Emergency (ER) | payer OTHER ==
--- NOTE | 2017-10-29 15:07 | PDOC ---
Rapid Medical Evaluation Time Seen by Provider: 10/29/17 15:04 Medical Evaluation: Allergies Allergy/AdvReac Type Severity Reaction Status Date / Time gabapentin AdvReac Intermediate confusion Verified 10/10/17 14:32 I have performed a brief in-person evaluation of this patient. The patient presents with a chief complaint of: itchy rash and fever x 4 days Pertinent physical exam findings: papular, erythematous rash to face, hands - nothing in mouth. I have ordered the following: nothing The patient will proceed to the ED for further evaluation.
[2017-10-29 15:25] VITALS: BP 93/59; PULSE 64; TEMP 98; BMI 19.5
--- NOTE | 2017-10-29 15:27 | PDOC ---
History of Present Illness - General History Source: Patient Exam Limitations: No Limitations - History of Present Illness Initial Comments: 10/29/17 15:58 The patient is a 32 year old female with no significant PMH who presents to the emergency department for evaluation of suspected syncopal episode just prior to arrival. The patient states she was at her OBs office after a pelvic exam and was in the waiting room when she suddenly felt lightheaded and that her mouth was dry, after which she passed out for a few seconds. The staff at the OBs office state one of the doctors who witnessed the episode believed the patient to be having a seizure. The patient states she has not eaten or drank anything today. She denies tongue biting or bladder/bowel incontinence. She denies past history of seizures but notes her uncle has epilepsy. The patient denies chest pain, shortness of breath, and headache. Denies fever, chills, nausea, vomit, diarrhea and constipation. Denies dysuria, frequency, urgency and hematuria. Allergies: Gabapentin Past surgical history: None reported. Social history: Opioid use (on Suboxone). Current everyday smoker. No reported alcohol use. CONTROL PANEL ASSEMBLER: [facility] <Dax Mcfadden - Last Filed: 10/29/17 15:58> <Garry Degroot - Last Filed: 10/29/17 17:12> - General Chief Complaint: Seizure Stated Complaint: Seizure Time Seen by Provider: 10/29/17 15:04 Past History <Dax Mcfadden - Last Filed: 10/29/17 15:58> - Past Medical History Anemia: No Asthma: No Cancer: No Cardiac Disorders: No CVA: No COPD: No Dementia: No Diabetes: No GI Disorders: No Disorders: No HTN: No Hypercholesterolemia: No Kidney Stones: No Liver Disease: No Seizures: No Thyroid Disease: No - Surgical History Abdominal Surgery: No Appendectomy: No Cardiac Surgery: No Cholecystectomy: No Lung Surgery: No Neurologic Surgery: No Orthopedic Surgery: No - Reproductive History PID: No - Suicide/Smoking/Psychosocial Hx Smoking Status: Yes Smoking History: Current every day smoker Have you smoked in the past 12 months: Yes Number of Cigarettes Smoked Daily: 15 Information on smoking cessation initiated: Yes 'Breaking Loose' booklet given: 10/29/17 Hx Alcohol Use: No Drug/Substance Use Hx: Yes (LAST USED 6 MONTHS AGO) Substance Use Type: Opiates Hx Substance Use Treatment: No (this is her first inpatient rehab treatment) <Garry Degroot - Last Filed: 10/29/17 17:12> - Past Medical History Allergies/Adverse Reactions: Allergies Allergy/AdvReac Type Severity Reaction Status Date / Time gabapentin AdvReac Intermediate confusion Verified 10/29/17 15:22 Home Medications: Ambulatory Orders Buprenorphine HCl/Naloxone HCl [Suboxone 12 mg-3 mg Sl Film] 1 each SL DAILY #5 packet MDD 1 10/26/17 Review of Systems - Review of Systems Able to Perform ROS?: Yes Comments:: 10/29/17 15:58 A complete review of 10 out of 10 review of systems is taken and is negative apart from what is previously mentioned below and in the HPI. <Dax Mcfadden - Last Filed: 10/29/17 15:58> *Physical Exam - Vital Signs Last Vital Signs Temp Pulse Resp BP Pulse Ox 98.0 F 64 18 93/59 100 10/29/17 15:22 10/29/17 15:22 10/29/17 15:22 10/29/17 15:22 10/29/17 15:22 - Physical Exam Comments: 10/29/17 15:58 Vitals: Triage Vital signs reviewed General Appearance: no acute distress, well nourished well developed, Head: Atraumatic, normocephalic Eyes: Pupils equal reactive round, extraocular movement intact Cardiac: Regular rate and rhythm, no murmurs, no rubs, no gallops, Lungs: Clear to auscultation bilateral, good air movement bilaterally, Abdomen: Soft, nondistended, normal bowel sounds, nontender to palpation Extremities: Full range of motion to all extremities, no cyanosis, clubbing, or edema Skin: Warm and dry, no rashes or lesions, no petechiae Neuro: AOX3; Cranial Nerves 2-12 grossly intact, Strength intact to all extremities, Sensation intact to all extremities Psych: normal mood, normal affect <Dax Mcfadden - Last Filed: 10/29/17 15:58> - Vital Signs Last Vital Signs Temp Pulse Resp BP Pulse Ox 98.0 F 64 18 93/59 100 10/29/17 15:22 10/29/17 15:22 10/29/17 15:22 10/29/17 15:22 10/29/17 15:22 <Garry Degroot - Last Filed: 10/29/17 17:12> ED Treatment Course - LABORATORY CBC & Chemistry Diagram: 10/29/17 15:33 10/29/17 15:33 <Garry Degroot - Last Filed: 10/29/17 17:12> Medical Decision Making - Medical Decision Making 10/29/17 17:08 32 years old past medical history significant for opioid dependence and 2 episodes of syncope in the past presents to the ED with an episode of syncope versus seizure Status post a painful pelvic examination her CONTROL PANEL ASSEMBLER's office [place] in the waiting room patient began to feel dizzy lightheaded as if she was given a passout. A bystander noted some shaking activity. There was no tongue biting incontinence or significant postictal. Most likely this represents a syncopal episode we'll check labs EKG CT head observe and reassess Dr. Eng to follow up EKG labs and reasses <Garry Degroot - Last Filed: 10/29/17 17:12> *DC/Admit/Observation/Transfer - Attestations Scribe Attestion: 10/29/17 15:58 Documentation prepared by Dax Mcfadden, acting as medical staff services manager for Garry Degroot MD. <Dax Mcfadden - Last Filed: 10/29/17 15:58> <Garry Degroot - Last Filed: 10/29/17 17:12> Diagnosis at time of Disposition: Syncope Qualifiers: Syncope type: unspecified Qualified Code(s): R55 - Syncope and collapse
[2017-10-29 17:28] LABS: ANION GAP 2 (8-16); BILIRUBIN,TOTAL 0.3 mg/dL (0.2-1.0); BLOOD UREA NITROGEN 10 mg/dL (7-18); CALCIUM 8.4 mg/dL (8.5-10.1); CHLORIDE 109 mmol/L (98-107); CO2 27 mmol/L (21-32); CREATININE 0.6 mg/dL (0.55-1.02); GLUCOSE,RANDOM 90 mg/dL (74-106); POTASSIUM 4.4 mmol/L (3.5-5.1); SGOT/AST 13 U/L (15-37); SGPT/ALT 11 U/L (12-78); SODIUM 138 mmol/L (136-145); TOT PROT 7.3 g/dl (6.4-8.2)
[2017-10-29 17:36] LABS: ALK PHOS 56 U/L (45-117)
[2017-10-29 18:56] LABS: BASO % 0.3 % (0-2.0); EOS % 0.2 % (0-4.5); HEMATOCRIT 34.9 % (32.4-45.2); HEMOGLOBIN 12.1 GM/dL (10.7-15.3); LYMPH % 15.3 % (8-40); MCH 30.9 pg (25.7-33.7); MCHC 34.7 g/dl (32.0-36.0); MEAN CELL VOLUME 88.9 fl (80-96); MEAN PLT VOLUME 9.2 fl (7.5-11.1); MONO % 2.9 % (3.8-10.2); NEUT % 81.3 % (42.8-82.8); PLATELET COUNT 226 K/MM3 (134-434); RBC 3.93 M/mm3 (3.60-5.2); RDW 14.1 % (11.6-15.6); WHITE BLOOD COUNT 9.9 K/mm3 (4.0-10.0)
--- NOTE | 2017-10-29 19:08 | PDOC ---
*Physical Exam - Vital Signs Last Vital Signs Temp Pulse Resp BP Pulse Ox 98.0 F 64 18 93/59 100 10/29/17 15:22 10/29/17 15:22 10/29/17 15:22 10/29/17 15:22 10/29/17 15:22 ED Treatment Course - LABORATORY CBC & Chemistry Diagram: 10/29/17 15:33 10/29/17 15:33 - ADDITIONAL ORDERS Additional order review: Laboratory Results 10/29/17 15:33 Sodium 138 Potassium 4.4 Chloride 109 H Carbon Dioxide 27 Anion Gap 2 L BUN 10 Creatinine 0.6 Creat Clearance w eGFR > 60 Random Glucose 90 Calcium 8.4 L Total Bilirubin 0.3 D AST 13 L ALT 11 L Alkaline Phosphatase 56 Total Protein 7.3 Albumin 4.0 TSH 0.98 10/29/17 15:33 RBC 3.93 MCV 88.9 MCHC 34.7 RDW 14.1 MPV 9.2 D Neutrophils % 81.3 Lymphocytes % 15.3 Monocytes % 2.9 L Eosinophils % 0.2 Basophils % 0.3 *DC/Admit/Observation/Transfer Diagnosis at time of Disposition: Syncope Qualifiers: Syncope type: unspecified Qualified Code(s): R55 - Syncope and collapse - Discharge Dispostion Disposition: HOME Condition at time of disposition: Stable - Referrals - Patient Instructions Printed Discharge Instructions: DI for Syncope in Adults (Fainting) Additional Instructions: please follow up with your doctor - Post Discharge Activity
--- NOTE | 2017-10-31 10:33 | EKG ---
Test Reason : Blood Pressure : / mmHG Vent. Rate : 061 BPM Atrial Rate : 061 BPM P-R Int : 116 ms QRS Dur : 098 ms QT Int : 424 ms P-R-T Axes : 070 073 063 degrees QTc Int : 426 ms NORMAL SINUS RHYTHM WITH SINUS ARRHYTHMIA NORMAL ECG WHEN COMPARED WITH ECG OF 01-JUN-2017 23:22, NONSPECIFIC T WAVE ABNORMALITY NO LONGER EVIDENT IN INFERIOR LEADS NONSPECIFIC T WAVE ABNORMALITY NO LONGER EVIDENT IN ANTERIOR LEADS Confirmed by NELSON GONZALEZ MD ([id number]) on 10/31/2017 10:33:20 AM Referred By: Confirmed By:NELSON GONZALEZ MD
== END 2017-10-29 19:13 | disposition home or self-care (01) ==
LOC: JER 15:00
DX: R55 Syncope and collapse (principal); F11.20 Opioid dependence, uncomplicated; F17.210 Nicotine dependence, cigarettes, uncomplicated
CPT/HCPCS: 36415; 70450-TC; 80053; 84443; 85025; 93005; 93010; 99283-25